=== PATIENT | male | born 1945 | race Caucasian/White ===

== ENCOUNTER → 2017-05-04 | Outpatient (CLI) | payer OTHER | END | disposition home or self-care (01) | LOC: C.RDSM 11:05 | PROVIDERS: ATTEND Physical Medicine & Rehabilitation Sports Medicine | DX: M25.512 Pain in left shoulder (principal) ==

== ENCOUNTER → 2017-06-16 | Day surgery (SDC) | payer OTHER ==
[2017-05-22 09:49] VITALS: Ht 177.8 cm; Wt 96.8 kg
[~2017-06-16] VITALS: Ht 177.8 cm; Wt 96.8 kg
[~2017-06-16] MED LIST: ASCA500 PO; ASPI81TA28 PO; ATROPINE SULFATE 0.1 MG/ML 5ML SYR IV PRN; CALC500C70 PO; CEFAZOLIN 2000MG IV PUSH 15 ML IV SCH; DEXAMETHASONE SOD INJ 4 MG/ML VIAL ONE; EpHEDrine SULFATE 50MG/5ML SYR ONE; EpINEphrine INJ 1MG/ML AMP 1 MG/ML AMP ONE; FENTANYL CITRATE INJ 50 MCG/1 ML 2 ML VIAL IV PRN; FENTANYL CITRATE INJ 50 MCG/1 ML 2 ML VIAL ONE; KETOROLAC TROMETHAMINE 30 MG/ML VIAL IV. PRN; LABETALOL HCL IV 5 MG/ML 20ML IV PRN; LEVOFLOXACIN 500 MG TAB PO SCH; LIDOCAINE HCL 2% 2 ML VIAL (20MG/ML) ONE; MIDAZOLAM HCL 1 MG/ML 2ML VIAL ONE; MULT-190 PO; OMEG10007 PO; ONDANSETRON INJ 2 MG/ML 2 ML VIAL IV PRN; ONDANSETRON INJ 2 MG/ML 2 ML VIAL ONE; OXYCODONE/ACETAMINOPHEN 5-325 TAB PO PRN; PHENYLEPHRINE HCL INJ 10 MG/ML VIAL ONE; PROPOFOL IV EMULSION 10 MG/ML 20 ML VIAL IV ONE; ROPIVACAINE 0.5% 5 MG/ML 30 ML VIAL ONE; ROSU20TA PO; SODIUM CHLORIDE 0.9% 1000ML 1,000 ML IV SCH
[2017-06-16] MEDS: LACTATED RINGER'S 1000ML 1,000 ML IV SCH ×2 (09:24→12:30)
--- NOTE | 2017-06-16 09:55 | History & Physical Bridge Note ---
H&P Re-Evaluation Bridge Note: I have examined the patient, reviewed the History & Physical and in the interval since the performance of the History & Physical I have noted the following changes of clinical significance: consent obtained.No changes noted
--- NOTE | 2017-06-16 09:57 | Discharge Instructions ---
Discharge Instructions Date of Service Jun 16, 2017. Visit Reason for Visit: Left Shoulder Rotator Cuff Tear Discharge Discharge Diagnosis / Problem: same Discharge Goals Goal(s): Decrease discomfort, Improve function Medications Stopped Medications Name(s): Fish Oil-last dose 06/08/17 Restart Stopped Medication(s): use all scripts as directed. Activity Recommendations Activity Limitations: as noted below Lifting Limitations: until after follow-up appointment Exercise/Sports Limitations: until after follow-up appointment May Resume Sexual Activity: after follow-up appointment Shower/Bathe: keep incision dry Driving or Machine Use: Anesthesia . Post Anesthesia Instructions: If you have had General Anesthesia or IV Sedation: * Do not drive today. * Resume driving when surgeon permits. * Do not make important decisions or sign legal documents today. * Call surgeon for: 1. Temperature elevations greater than 101 degrees F. 2. Uncontrollable pain. 3. Excessive bleeding. 4. Persistent nausea and vomiting. 5. Medication intolerance (nausea, vomiting or rash). * For nausea and vomiting use only clear liquids such as: tea, soda, bouillon until nausea subsides, then gradually increase diet as tolerated. * If you have any concerns or questions, call your surgeon's office. If physician is unavailable and it is an emergency, call 911 or go to the nearest emergency room. . Instructions / Follow-Up Instructions / Follow-Up The following are instructions to follow after "Shoulder Surgery" including, Acromioplasty, Rotator Cuff Repair and Instability Surgery ACTIVITY RECOMMENDATIONS: * Minimize activity after surgery. * No excessive walking, jogging, sports or laboring. * Return to activity is individualized depending on the patient and type of surgery. * Driving is not permitted until at least your first post operative visit. Please ask your doctor when it is safe to resume driving. * Expect increased discomfort with increased activity. Continue to ice the shoulder as needed. SCHOOL/WORK RECOMMENDATIONS: * You may return to sedentary work or school when you are feeling more comfortable. This is usually 3-7 days after surgery. MEDICATIONS: * You will have a prescription for pain medication and an anti-inflammatory medication after surgery. * Use the pain medication for severe pain and the anti-inflammatory for less severe pain. Once the pain medication has run out, try to use the anti-inflammatory medication. If this is not effective, contact the office for assistance. * The pain medication may cause nausea, constipation and drowsiness. You should see how they affect you before driving or similar activity. * The anti-inflammatory medication may cause stomach upset and bleeding. If this occurs let your doctor know immediately . * Take a stool softener like Colace or a laxative like Senokot to prevent constipation. DIET: * Resume previous diet. SPECIAL CARE: ICE: You have the option of an ice cooler, gel packs or ice bags. * If you have an ice cooler, refer to the instructions for that device. The ice cooler may be used continuously. * If you do not have an ice cooler, you will need to use ice bags or gel packs. Do not apply ice directly to the skin. Use a thin dressing or kayleen shirt between the skin and ice bag. Apply ice for 20-30 minutes and repeat every 2-4 hours. This is especially important for the first 7-10 days after surgery. Once the pain improves, use ice as needed. ELEVATION: * You may be more comfortable sleeping in an upright position. Use the sling to elevate your arm. DRESSING: * Your dressing will be changed at your first therapy appointment approximately 4-5 days after surgery. Band-aids, tape strips or gauze may be applied. You may then change your dressing daily. * Reapply dressing followed by the EBIce cooling pad (if chosen) and then the sling. * Always wash your hands prior to touching the incision area. * Once the stitches are removed, you may leave the wound open to air or cover with gauze. * Expect some bloody drainage for the first few days after surgery. * Leave the tape strips, if present, in place for 5-7 days. * Band-aids and gauze may be changed daily. * There may be a gauze pad in your armpit area. This can be changed daily or replaced by a dry washcloth. SLING/BRACE: * You will need to use a sling or brace after surgery. The length of time the sling is used is dependent upon the type of surgery performed. * Arthroscopic Acromioplasty requires use of the sling for 2-4 weeks for comfort. * Labral procedures and Rotator Cuff Repairs require use of the sling for a longer period of time. Please check with your doctor prior to discontinuing the sling. BATHING: * You may shower or sponge-bathe immediately after surgery. The post operative shoulder dressing is mostly water-tight. You may shower right over this dressing, but be reasonably careful not to get the gauze or incision wet. * Once the dressing has been changed on the fourth or fifth day after surgery, you may shower and get the incision wet. * Wash with regular soap and water. * Do not bathe (submerge the incision), soak, swim or use a hot tub until the incision is completely healed over with normal skin and the doctor has given the OK to proceed. * There is no need to apply any ointments, powders or salves to your incision. * Do not apply alcohol or hydrogen peroxide directly to the incision. * Diluted peroxide (50:50 mixture with sterile saline) may be used to clean dried blood from around the incision area. THERAPY: * You will begin therapy four or five days after surgery. * Organized therapy with the therapist is important for the first 2-4 months after surgery depending on the type of procedure. During that time you will attend therapy 1-3 times per week. * You will also need to do daily exercises for range of motion and strength as instructed. * Patients who have a Capsular Shift Procedure will need to abide by temporary range of motion limitations. * Patients having Rotator Cuff Surgery are not allowed to actively lift their arms until 4-6 weeks after surgery. * Please check with your doctor regarding appropriate motion restrictions. FOLLOW UP VISIT: * If not already scheduled, please call the office at to schedule a follow-up appointment for 10 days after surgery and monthly thereafter. Diet Recommendations Recommended Home Diet: resume previous diet Procedures Procedures Performed: see op note Pending Studies Studies pending at discharge: no Medical Emergencies . Who to Call and When: Medical Emergencies: If at any time you feel your situation is an emergency, please call 911 immediately. . Non-Emergent Contact Non-Emergency issues call your: Specialist Call Non-Emergent contact if: wound has increased drainage, wound has increased redness, wound has increased pain . . "Provider Documentation" section prepared by Colby Amanda. .
--- NOTE | 2017-06-16 11:25 | [facility] Post Operative Brief Note ---
Immediate Operative Summary Operative Date Jun 16, 2017. Pre-Operative Diagnosis Left Shoulder Rotator Cuff Tear Post-Operative Diagnosis Same Procedure(s) Performed Left Shoulder Arthroscopy, Large Rotator Cuff Repair, Biceps Tenotomy Surgeon [employer] Equipment Mechanic Surgeon(s) Dr. Zuniga, Fellow; Yanelis Sharpe PA-C Estimated Blood Loss Trace Findings Consistent with Post-Op Diagnosis Fluids (cc crystalloids) 1000cc Specimens None Drains None Anesthesia Type General Regional Complication(s) none Disposition Accompanied Pt To Recovery: no Disposition: Recovery Room / PACU
--- NOTE | 2017-06-16 12:12 | OPERATIVE REPORT ---
DATE OF OPERATION: 06/16/2017 STAINED GLASS INSTALLER: Greta. SECOND STAINED GLASS INSTALLER: Dell. PREOPERATIVE DIAGNOSIS: Large rotator cuff tear, left shoulder. POSTOPERATIVE DIAGNOSES: Large rotator cuff tear, left shoulder with chronic biceps tendinopathy. OPERATION PERFORMED: 1. Exam under anesthesia. 2. Diagnostic arthroscopy. 3. Arthroscopic biceps tenotomy. 4. Arthroscopic large rotator cuff repair and subacromial bursectomy. PERIOPERATIVE SITUATION: A 72-year-old male with intractable shoulder pain, has significant weakness and pain. Physical exam, x-ray and MRI scan consistent with large rotator cuff tear. Also has significant biceps tendinopathy and rotator cuff tendinopathy. PROCEDURE: Patient appropriately identified, site verified, consent verified, 2 grams of Ancef confirmed as being given. The left shoulder was examined revealing no instability. He was then carefully placed in a beach chair position and the left upper extremity prepped and draped in usual routine fashion. The posterior portal made 2 cm medial and inferior to posterolateral tip of the acromion. The joint was then entered. The anterior portal made just off the edge of AC joint. The joint was entered. Immediately encountered was a large rotator cuff tear, chronic biceps tendinopathy with marked subluxation medially. This was debrided. The subscap was intact. The biceps was then released. The labrum was then debrided. The rotator cuff was then debrided. The scope was then placed in the subacromial space. The large tear identified. The insertion footprint then cleaned of all soft tissue and a little bit of cartilage removed. The 2 accessory portals were then made. A Carmen cannula was placed. Four sutures were then placed spaced across the tear, they were then crisscrossed and two 4.75 anchors placed and placed into the anatomic footprint. A good repair was obtained. The anterior anchor was placed first, the posterior anchor second. An excellent repair was obtained. The shoulder was rotated. There was no issue of tear retraction or elevation. Subacromial space was then entered from the straight medial portal and then looking straight medially to the rotator cuff. Tear was identified and noted to be quite solid. Procedure was then terminated. All instruments and fluid removed. The portal was closed with 3-0 nylon, dressed with Xeroform, 4 x 4 gauze, ABD pads and Ioban dressing. ESTIMATED BLOOD LOSS: Trace. CRYSTALLOID: Approximately 900-1000 mL of crystalloid. DEEP VEIN THROMBOSIS PROPHYLAXIS: Aspirin. I attest to the content of the Intraoperative Record and any orders documented therein. Any exception s are noted below.
[2017-06-16 12:31] VITALS: TEMP 36.6
--- NOTE | 2017-06-16 13:00 | Anesthesia Progress Nt - [facility] ---
Anesthesia Post Op Note Date & Time Jun 16, 2017 at 13:00 Vital Signs Pain Intensity: 0 Vital Signs Past 12 Hours Date Time Temp Pulse Resp B/P (MAP) Pulse Ox O2 Delivery O2 Flow Rate FiO2 06/16/17 12:27 78 23 06/16/17 12:27 79 23 94 06/16/17 12:26 76 24 06/16/17 12:26 76 24 112/77 92 06/16/17 12:25 36.5 76 18 112/74 94 Room Air 06/16/17 12:21 75 27 92 06/16/17 12:21 75 27 06/16/17 12:20 119/73 06/16/17 12:16 74 24 06/16/17 12:16 73 24 95 06/16/17 12:15 130/83 06/16/17 12:11 72 17 06/16/17 12:11 72 17 92 06/16/17 12:10 109/95 06/16/17 12:06 77 19 06/16/17 12:06 76 19 123/83 94 06/16/17 12:01 75 21 06/16/17 12:01 75 21 94 06/16/17 12:00 131/77 06/16/17 11:56 75 24 06/16/17 11:56 74 24 95 06/16/17 11:55 123/74 06/16/17 11:51 72 23 95 06/16/17 11:51 72 23 06/16/17 11:50 128/85 06/16/17 11:46 80 23 95 06/16/17 11:46 79 23 06/16/17 11:45 133/82 06/16/17 11:43 79 20 97 06/16/17 11:43 79 20 06/16/17 11:40 133/85 06/16/17 11:38 85 132/79 96 06/16/17 11:38 36.3 83 12 132/79 96 Diffusion Mask 6 06/16/17 11:38 85 06/16/17 10:20 66 22 128/84 94 06/16/17 10:20 66 06/16/17 10:15 63 5 147/87 98 06/16/17 10:15 63 06/16/17 10:11 128/83 06/16/17 10:10 60 0 95 06/16/17 10:10 60 4/10/18 10:05 60 0 94 06/16/17 10:05 61 06/16/17 10:00 60 0 96 06/16/17 10:00 61 06/16/17 09:55 61 06/16/17 09:55 61 0 96 06/16/17 09:50 61 0 95 06/16/17 09:50 61 06/16/17 09:45 59 0 97 06/16/17 09:45 60 06/16/17 09:40 63 06/16/17 09:40 63 0 97 06/16/17 09:35 61 0 93 06/16/17 09:35 61 06/16/17 09:30 60 0 93 06/16/17 09:30 60 06/16/17 09:25 58 06/16/17 09:25 58 0 97 06/16/17 09:20 64 06/16/17 09:20 63 0 98 06/16/17 09:01 36 72 20 123/84 (97) 96 Room Air Notes Mental Status: alert / awake / arousable, participated in evaluation Pt Amnestic to Procedure: Yes Nausea / Vomiting: adequately controlled Pain: adequately controlled Airway Patency, RR, SpO2: stable & adequate BP & HR: stable & adequate Hydration State: stable & adequate Anesthetic Complications: no major complications apparent
[2017-06-16 13:20] VITALS: BP 135/84; PULSE 76; O2SAT 96
--- NOTE | 2017-06-16 19:38 | [facility] Operative Report ---
Operative Report Operative Date Jun 16, 2017. Pre-Operative Diagnosis Left Shoulder Rotator Cuff Tear Post-Operative Diagnosis Left shoulder same Procedure(s) Performed Left Shoulder Arthroscopy, Large Rotator Cuff Repair, Biceps Tenotomy Surgeon Dial Marker Surgeon(s) Dr. Zuniga, Fellow; Yanelis Sharpe PA-C Estimated Blood Loss Trace Findings Left shoulder rotator cuff tear, biceps tendinopathy Fluids 1000cc Specimens None Drains None Anesthesia Type General Regional Complication(s) none Disposition no Recovery Room / PACU Indications This 72-year-old white male presented to the office with complaints of intractable left shoulder pain. He had tried conservative care measures including activity modification, anti-inflammatory use, and cortisone injection without improvement. Preoperative x-ray and MRI were obtained. He elected to proceed with surgical intervention after being educated about potential risks and outcomes. Description of Procedure Patient was administered a regional block and then taken to the operating room where he was given general anesthesia. He was prepped and draped in usual sterile fashion. Please see Dr. Amanda's operative report for specifics of the procedure. I was present for the entire case from initial patient positioning through final wound closure. Assistance was provided in patient positioning, arthroscopy, hardware placement, and final wound closure. Patient was taken to the recovery room in satisfactory condition. I attest to the content of the Intraoperative Record and any orders documented therein. Any exceptions are noted below.
== END | disposition home or self-care (01) ==
LOC: X.SURG 08:53
PROVIDERS: ATTEND Physical Medicine & Rehabilitation Sports Medicine
DX: S46.012A Strain of muscle(s) and tendon(s) of the rotator cuff of left shoulder, initial encounter (principal); W19.XXXA Unspecified fall, initial encounter; M75.22 Bicipital tendinitis, left shoulder; M19.90 Unspecified osteoarthritis, unspecified site; N40.0 Benign prostatic hyperplasia without lower urinary tract symptoms; Z79.82 Long term (current) use of aspirin; Z79.899 Other long term (current) drug therapy